=== PATIENT | female | born 1935 | race Caucasian/White ===

== ENCOUNTER 2020-05-18 09:52 | Outpatient (CLI) | payer MEDICARE | END 2020-05-18 23:59 | disposition home or self-care (01) | LOC: RAD 09:52 | PROVIDERS: ATTEND Orthopaedic Surgery | DX: M47.812 Spondylosis without myelopathy or radiculopathy, cervical region (principal); M85.88 Other specified disorders of bone density and structure, other site; M25.78 Osteophyte, vertebrae | CPT/HCPCS: 72052 ==